=== PATIENT | female | born 1970 | race Caucasian/White ===

== ENCOUNTER → 2019-04-09 | Outpatient (CLI) | payer BC, OTHER | END | disposition home or self-care (01) | LOC: LAB SHORT 13:48 → LAB 13:48 | DX: N39.0 Urinary tract infection, site not specified (principal) | CPT/HCPCS: 87077; 87086; 87186 ==

== ENCOUNTER 2024-03-20 07:58 | Day surgery (SDC) | payer OTHER ==
[~2024-03-20] VITALS: Ht 162.6 cm; Wt 68.1 kg
[~2024-03-20 07:58] MED LIST: Estradiol PO; Lactated Ringer's 1,000 ML IV SCH; PROG100 PO; ROSU5 PO
[2024-03-20 08:24] VITALS: BP 108/73
[2024-03-20] MEDS ORDERED: propofoL 40 ML IV ONE (09:38)
--- NOTE | 2024-03-20 09:53 | NUR ---
03/20/24 0953 Trey Dodge HISTORY, CHART, MEDICATIONS AND ALLERGIES REVIEWED BEFORE START OF PROCEDURE. PATIENT CONFIRMS NPO STATUS AND AGREES WITH SCHEDULED PROCEDURE. 3-LEAD EKG REVIEWED WITH PHYSICIAN PRIOR TO START OF PROCEDURE. MONITOR INTACT WITH CONTINUOUS PULSE OXIMETRY,CAPNOGRAPHY, 3-LEAD EKG, INTERMITTENT BP. SUPPLEMENTAL O2 TO BE TITRATED THROUGHOUT PROCEDURE TO MAINTAIN O2 SATURATION ABOVE 90%. PATIENT DETERMINED TO BE ASA APPROPRIATE FOR PROPOFOL SEDATION PRIOR TO START OF PROCEDURE BY DR. DWYER.
[2024-03-20] MEDS ORDERED: Midazolam HCl 1MG / ML 2ML Vial ONE (09:54)
[2024-03-20 10:29] VITALS: BP 106/62
--- NOTE | 2024-03-20 10:29 | NUR ---
PT TO DAY SURGERY STEP DOWN FROM COLONOSCOPY. PT IS SLEEPY, BUT WAKENS TO VOICE AND CAN FOLLOW COMMANDS; ABLE TO MOVE SELF IN BED. VSS. AT BEDSIDE.
[2024-03-20 10:45] VITALS: BP 110/59
--- NOTE | 2024-03-20 10:49 | NUR ---
PT FULLY AWAKE. PO FLUIDS GIVEN. Patient States Post-Procedure ride home has been arranged. Discharge instructions reviewed with patient. Patient verbalizes understanding. Copy given to patient to take home.
[2024-03-20 11:05] VITALS: BP 112/64
--- NOTE | 2024-03-20 11:09 | NUR ---
Patient up to Ambulate independently. Gait steady. Discharged via wheelchair to private car for ride home.
== END 2024-03-20 10:49 | disposition home or self-care (01) ==
LOC: ORSCMMR 07:58 → ORD 08:30 → ORSCMMR 10:49
PROVIDERS: Internal Medicine Gastroenterology
PROC: 0DBM8ZX Excision of Descending Colon, Via Natural or Artificial Opening Endoscopic, Diagnostic (ICD-10-PCS; principal; 2024-03-20 08:30)
PROC: 0DBH8ZX Excision of Cecum, Via Natural or Artificial Opening Endoscopic, Diagnostic (ICD-10-PCS; principal; 2024-03-20 08:30)
DX: Z12.11 Encounter for screening for malignant neoplasm of colon (principal); D12.0 Benign neoplasm of cecum; K63.5 Polyp of colon; E78.00 Pure hypercholesterolemia, unspecified; Z79.899 Other long term (current) drug therapy
CPT/HCPCS: 88305; J2250; J2704; J7120